=== PATIENT | male | born 2000 | race Caucasian/White ===

== ENCOUNTER 2018-09-03 18:51 | Emergency (ER) | payer OTHER ==
[~2018-09-03] VITALS: Ht 175.3 cm; Wt 113.4 kg
[2018-09-03 18:55] VITALS: BP_SYST 154
--- NOTE | 2018-09-03 19:05 | NUR ---
Patient to ER bed 7 for evaluation.
--- NOTE | 2018-09-03 19:14 | NUR ---
Pt AAOx4 ambulated into ED c/o /10 pain, swelling, and tearing to R eye x few days. Pt was dx with blepharitis to L eyex 1 month ago, was given rx antibiotics with relief. 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 Will continue to monitor.
--- NOTE | 2018-09-03 20:13 | NUR ---
ER Dr. Graves at bedside examining patient.
--- NOTE | 2018-09-03 20:35 | NUR ---
Patient given written and verbal discharge instructions and verbalizes understanding. ER MD Graves discussed with patient the results and treatment provided. Patient in stable condition. ID arm band removed. Rx of Polytrim given. Patient educated on pain management and to follow up with PMD. Pain Scale 0. Opportunity for questions provided and answered. Medication side effect fact sheet provided.
[2018-09-03 20:36] VITALS: BP_SYST 134
== END 2018-09-03 20:35 | disposition home or self-care (01) ==
LOC: SED 18:51
DX: H01.002 Unspecified blepharitis right lower eyelid (principal); H10.9 Unspecified conjunctivitis
CPT/HCPCS: 99283

== ENCOUNTER 2018-09-27 20:16 | Emergency (ER) | payer OTHER ==
[~2018-09-27] VITALS: Ht 177.8 cm; Wt 111.1 kg
[2018-09-27 20:21] VITALS: BP_SYST 150
[2018-09-27] MEDS ORDERED: IBUPROFEN 800 MG TABLET PO ONE (20:30)
[2018-09-27 21:15] VITALS: BP_SYST 150
== END 2018-09-27 21:19 | disposition home or self-care (01) ==
LOC: SED 20:16
DX: S20.212A Contusion of left front wall of thorax, initial encounter (principal); V43.62XA Car passenger injured in collision with other type car in traffic accident, initial encounter; Y93.89 Activity, other specified; Y92.410 Unspecified street and highway as the place of occurrence of the external cause; Y99.8 Other external cause status
CPT/HCPCS: 71100; 99283